=== PATIENT | female | born 1975 | race Caucasian/White ===

== ENCOUNTER → 2022-07-28 11:29 | Outpatient (BNVA) | payer MEDICARE, MEDICAID, SELFPAY | PROVIDERS: Family Provider Nurse Practitioner Family; PCP Family Medicine; Visit Provider Nurse Practitioner Family | DX: R68.89 Other general symptoms and signs (principal); A08.4 Viral intestinal infection, unspecified; I10 Essential (primary) hypertension; F17.200 Nicotine dependence, unspecified, uncomplicated; J32.9 Chronic sinusitis, unspecified; B97.89 Other viral agents as the cause of diseases classified elsewhere | CPT/HCPCS: 87400; 87426 ==

== ENCOUNTER → 2022-08-27 13:30 | Outpatient (BNVA) | payer MEDICARE, MEDICAID, SELFPAY | PROVIDERS: Family Provider Nurse Practitioner Family; PCP Family Medicine; Visit Provider Nurse Practitioner Family | DX: M25.512 Pain in left shoulder (principal) | CPT/HCPCS: 73030 ==

== ENCOUNTER → 2023-08-09 13:45 | Outpatient (BNVA) | payer MEDICARE, MEDICAID, SELFPAY | PROVIDERS: Family Provider Nurse Practitioner Family; PCP Family Medicine; Visit Provider Nurse Practitioner | DX: R50.9 Fever, unspecified (principal); J06.9 Acute upper respiratory infection, unspecified | CPT/HCPCS: 87400; 87426 ==

== ENCOUNTER 2023-09-19 11:33 | Emergency (ER) | payer MEDICARE, MEDICAID, SELFPAY ==
[2023-09-19 12:16] VITALS: BP 171/114; PULSE 95; RESP 18; TEMP 36.7; O2SAT 99; BMI 37.9
--- NOTE | 2023-09-19 13:11 | PC.NURSE ---
registration spoke with dr de leon in [facility]'s nurse and they sent pt here d/t swelling of optic nerve, sent for CT scan.
--- NOTE | 2023-09-19 13:25 | CTR_ITS ---
PROCEDURE INFORMATION: Exam: CT Head Without Contrast Exam date and time: 09/19/2023 1:43 PM Age: 48 years old Clinical indication: Other: Papilledema, sent by eye Dr TECHNIQUE: Imaging protocol: Computed tomography of the head without contrast. Radiation optimization: All CT scans at this facility use at least one of these dose optimization techniques: automated exposure control; mA and/or kV adjustment per patient size (includes targeted exams where dose is matched to clinical indication); or iterative reconstruction. COMPARISON: No relevant prior studies available. RADIATION DOSE METRICS: Total DLP (mGy-cm): 1022.68 FINDINGS: Brain: No midline shift. Mild parenchymal volume loss. No hemorrhage or extra-axial fluid collection. Cerebral ventricles: No ventriculomegaly. Pituitary gland and sella: Partially empty sella. Paranasal sinuses: Visualized sinuses are unremarkable. No fluid levels. Mastoid air cells: Visualized mastoid air cells are well aerated. Orbital cavities: There is optic nerve sheath enlargement seen bilaterally within the orbital components. Subtle intra-ocular protrusion of left optic nerve head. Bones/joints: Unremarkable. No acute fracture. Soft tissues: Unremarkable. CT/CT head wo con* [id number] IMPRESSION: There is optic nerve sheath enlargement seen bilaterally within the orbital components. Subtle intra-ocular protrusion of left optic nerve head. Partially empty sella. Findings raise question of idiopathic intracranial hypertension and further evaluation is recommended with MRI including T2 coronal fat-saturated orbital images and MRV.
--- NOTE | 2023-09-19 13:27 | W.ED.EYEPROB ---
HPI - Eye Problem General: Chief complaint: Eye Problems Stated complaint: eye trouble, sent from eye dr Time Seen by Provider: 09/19/23 13:23 History of Present Illness: 48-year-old female comes in today for complaints of abnormal eye exam at the [employer] office. Patient was told that she had swelling of the optic nerve and recommend that she be evaluated in the ER. Patient reports no headache or severe distress. Patient is a diabetic with chronic kidney disease and dialysis patient. Patient does report chronic hypertension. Review of Systems General: Reports: 10 or more systems reviewed and unremarkable except in HPI and below PFSH ED PFSH: Medical History History of hemodialysis CKD (chronic kidney disease) Cellulitis of left breast Strain of adductor rambo muscle of left lower extremity Family History Father Cancer Mother Chronic kidney disease (CKD) Social History Smoking and tobacco/nicotine status: current every day tobacco/nicotine user cigarettes Packs smoked per day: 1 Years cigarettes smoked: 20 Quit status (tobacco/nicotine): not considering quitting Alcohol intake: never Substance/Drug Use: never Female Reproductive History: Spontaneous abortions: No Physical Exam Const: COMMON NORMALS: alert HENMT: COMMON NORMALS: normocephalic HEAD & SCALP: normocephalic Eye: GENERAL EYE: appearance normal, both eyes and all related structures Neck/C-Spine: COMMON NORMALS: full ROM Resp: COMMON NORMALS: normal respiratory effort and clear to auscultation bilaterally AUSCULTATION: clear to auscultation bilaterally Cardio: COMMON NORMALS: regular rate and regular rhythm RATE: regular rate RHYTHM: regular rhythm Extremity: COMMON NORMALS: normal to inspection NARRATIVE EXTREMITY EXAM: Dialysis shunt is noted in the left upper arm Neuro: SENSORIUM/ORIENTATION: Yes alert Skin: COMMON NORMALS: turgor normal GENERAL SKIN EXAM: turgor normal Course Vital Signs: Vital signs: Vital Signs Temperature 98.1 F 09/19/23 12:16 Pulse Rate 95 09/19/23 12:16 Respiratory Rate 18 09/19/23 12:16 Blood Pressure 171/114 09/19/23 12:16 Pulse Oximetry 99 09/19/23 12:16 Oxygen Delivery Me thod Room Air 09/19/23 12:16 MDM - Eye Problem Medical Decision Making 48-year-old female was referred from [employer] [facility] for concerns of swelling of the optic nerve. Patient appears nontoxic. Patient reports no headache. Patient reports no illness. Patient was at the eye doctor for a routine exam. Patient reports no change in eyesight. Vital signs are normal except for elevated blood pressure at 171/114. Patient reports that she always has high blood pressure. Patient is on dialysis. Differential diagnosis includes not limited to chronic hypertension, increased ICP, hydrocephalus, cerebral edema. CBC was unremarkable. CMP noted creatinine 6.5, potassium 4.4, sodium 128, and a BNP of 28,000. This is most likely due to patient's chronic kidney disease and dialysis. CT noted the optic nerve sheath swelling and suggestive increase ICP most likely idiopathic. There was an MRI suggested for patient to have done. I reviewed this with patient and offered to set up for MRI today but it would be 530 patient did not want to do this today and wanted to see her primary care and have it scheduled at a later date. Patient was stable and nontoxic. Patient had no complaints. Patient was discharged home with instructions for follow-up. I reviewed this with Dr. Powers who agreed with plan. Lab Data 09/19/23 13:32 09/19/23 13:[address] 09/19/23 13:25 IMPRESSION: There is optic nerve sheath enlargement seen bilaterally within the orbital components. Subtle intra-ocular protrusion of left optic nerve head. Partially empty sella. Findings raise question of idiopathic intracranial hypertension and further evaluation is recommended with MRI including T2 coronal fat-saturated orbital images and MRV. Laboratory Results WBC 8.67 10^3/uL (3.29-11.43) 09/19/23 13:32 RBC 4.03 10^6/uL (3.85-5.65) 09/19/23 13:32 Hgb 12.00 g/dL (11.27-16.99) 09/19/23 13:32 Hct 35.4 % (36-47) L 09/19/23 13:32 MCV 87.8 fl (85-98) 09/19/23 13:32 MCH 29.8 pg (27-33) 09/19/23 13:32 MCHC 33.9 g/dL (30-55) 09/19/23 13:32 RDW 12.7 % (12.1-15.1) 09/19/23 13:32 Plt Count 225 10^3/cmm (157-399) 09/19/23 13:32 MPV 9.8 fL (7.4-10.4) 09/19/23 13:32 Neut % (Auto) 54.6 % 09/19/23 13:32 Lymph % (Auto) 29.5 % 09/19/23 13:32 [place] % (Auto) 13.3 % 09/19/23 13:32 Eos % (Auto) 1.4 % 09/19/23 13:32 Baso % (Auto) 0.9 % 09/19/23 13:32 Neut # (Auto) 4.73 10^3/uL (1.8-7.7) 09/19/23 13:32 Lymph # (Auto) 2.6 10^3/uL (0.8-4.8) 09/19/23 13:32 [place] # (Auto) 1.2 10^3/uL (0.2-0.9) H 09/19/23 13:32 Eos # (Auto) 0.1 10^3/uL (0.0-0.8) 09/19/23 13:32 Baso # (Auto) 0.1 10^3/uL (0.0-0.1) 09/19/23 13:32 Nucleated RBC % (auto) 0 % 09/19/23 13:32 Nucleated RBCs # 0.0 /100WBC 09/19/23 13:32 Sodium 128 mmol/L (136-145) L 09/19/23 13:32 Potassium 4.4 mmol/L (3.5-5.1) 09/19/23 13:32 Chloride 84 mmol/L (98-107) L 09/19/23 13:32 Carbon Dioxide 30 mmol/L (22-29) H 09/19/23 13:32 Anion Gap 18.4 (5-19) 09/19/23 13:32 BUN 42 mg/dL (6-20) H 09/19/23 13:32 Creatinine 6.5 mg/dL (0.5-0.9) H* 09/19/23 13:32 GFR Calculation 6.9 mL/min (90-130) L 09/19/23 13:32 Glucose 103 mg/dL (65-115) 09/19/23 13:32 Calculated Osmolality 277 mOsm/kg (285-295) L 09/19/23 13:32 Calcium 8.8 mg/dL (8.5-10.5) 09/19/23 13:32 Total Bilirubin 0.3 mg/dL (0.15-1.2) 09/19/23 13:32 AST 8 U/L (0-32) 09/19/23 13:32 ALT 9 U/L (0-33) 09/19/23 13:32 Alkaline Phosphatase 65 U/L (35-105) 09/19/23 13:32 NT-Pro-B Natriuret Pep 96879 pg/mL (0-125) H 09/19/23 13:32 Total Protein 7.6 g/dL (6.6-8.7) 09/19/23 13:32 Albumin 4.0 g/dL (3.5-5.2) 09/19/23 13:32 Globulin 3.6 g/dL (1.3-4.6) 09/19/23 13:32 All radiology interpretation(s) finalized by discharge Discharge Plan Discharge Patient Disposition: Home Clinical Impression: Papilledema Condition: Stable Prescriptions: No Action hydralazine-hydrochlorothiazid 25-25 mg capsule PO prednisone 20 mg tablet 20 mg PO DAILY 5 Days Qty: 5 0RF carvedilol 12.5 mg tablet 12.5 mg PO BID Rx Instructions: must administer with a meal/food trazodone 50 mg tablet 50 mg PO DAILY lorazepam 1 mg tablet 1 mg PO DAILY PRN Ozempic 0.25 mg or 0.5 mg(2 mg/1.5 mL) pen injector SUBCUT Discharge Orders: Discharge ED (Routine); Ordered 09/19/23 Ordered By: Dionicio Ludwig Referrals: Edward Phoenix DO [Primary Care Provider] - Discharge Diet: Usual diet Discharge Activity: Increase activity as tolerated Patient Instructions: Idiopathic Intracranial Hypertension (ED) Activity Restrictions/Additional Instructions: Your CT exam showed findings that suggest idiopathic intracranial hypertension. It is recommended that you follow-up with primary care for MRI evaluation. You will need to have this set up as outpatient for further evaluation. Return to ER for worsening symptoms such as severe headache, changes in vision, or new concerns. Coding Level of Care Code ED [employer] for [employer]
--- NOTE | 2023-09-19 13:34 | ECG_ITS ---
[facility] Test Date: 2023-09-19 Pat Name: Najma Villa Department: Room: Gender: Female [employer]: : 1975 Requested By: Dionicio Thrasher Order Number: [id number] Sierra MD: Suhas Lu M.D. Measurements Intervals [place] Rate: 88 P: 47 CT: 161 QRS: -8 QRSD: 85 T: 52 QT: 366 QTc: 445 Interpretive Statements SINUS RHYTHM MODERATE VOLTAGE CRITERIA FOR LVH, CONSIDER NORMAL VARIANT [MEETS CRITERIA IN ONE OF: R(aVL), S(V1), R(V5), R(V5/V6)+S(V1)] No previous ECG available for comparison Electronically Signed On 09-19-2023 22:10:53 CDT by Suhas Lu M.D. [email or web address]
[2023-09-19 13:58] LABS: Basophils # 0.1 10^3/uL (0.0-0.1); Basophils % 0.9 %; Eosinophils # 0.1 10^3/uL (0.0-0.8); Eosinophils % 1.4 %; Hematocrit 35.4 % (36-47); Lymphocytes # 2.6 10^3/uL (0.8-4.8); Lymphocytes % 29.5 %; Mean Corpuscular HGB Conc 33.9 g/dL (30-55); Mean Corpuscular Hemoglobin 29.8 pg (27-33); Mean Corpuscular Volume 87.8 fl (85-98); Mean Platelet Volume 9.8 fL (7.4-10.4); Monocytes # 1.2 10^3/uL (0.2-0.9); Monocytes % 13.3 %; Neutrophils # 4.73 10^3/uL (1.8-7.7); Neutrophils % 54.6 %; Nucleated Red Blood Cells % 0 %; Platelet Count 225 10^3/cmm (157-399); Red Blood Count 4.03 10^6/uL (3.85-5.65); Red Cell Distribution Width 12.7 % (12.1-15.1); White Blood Count 8.67 10^3/uL (3.29-11.43)
[2023-09-19 14:06] LABS: Alanine Aminotransferase 9 U/L (0-33); Alkaline Phosphatase 65 U/L (35-105); Anion Gap 18.4 (5-19); Aspartate Amino Transferase 8 U/L (0-32); Blood Urea Nitrogen 42 mg/dL (6-20); Calcium 8.8 mg/dL (8.5-10.5); Carbon Dioxide 30 mmol/L (22-29); Chloride 84 mmol/L (98-107); Creatinine Clr Calc Pharmacy 14.7421; Globulin 3.6 g/dL (1.3-4.6); Glomerular Filtration Rate 6.9 mL/min (90-130); Glucose 103 mg/dL (65-115); Osmolality Calculated 277 mOsm/kg (285-295); Potassium 4.4 mmol/L (3.5-5.1); Sodium 128 mmol/L (136-145); Total Bilirubin 0.3 mg/dL (0.15-1.2); Total Protein 7.6 g/dL (6.6-8.7)
[2023-09-19 14:26] LABS: NT Pro B Type Natriuretic Pept 29732 pg/mL (0-125)
== END 2023-09-19 15:06 | disposition home or self-care (01) ==
PROVIDERS: Emergency Provider Nurse Practitioner Family; PCP Family Medicine
DX: H47.10 Unspecified papilledema (principal); E11.22 Type 2 diabetes mellitus with diabetic chronic kidney disease; I12.9 Hypertensive chronic kidney disease with stage 1 through stage 4 chronic kidney disease, or unspecified chronic kidney disease; N18.9 Chronic kidney disease, unspecified; Z99.2 Dependence on renal dialysis; Z79.85 Long-term (current) use of injectable non-insulin antidiabetic drugs
CPT/HCPCS: 36415; 70450; 80053; 83880; 85025; 93005; 99284

== ENCOUNTER → 2025-03-04 14:03 | Outpatient (BNVA) | payer MEDICARE, MEDICAID, SELFPAY | PROVIDERS: PCP Family Medicine; Referring Provider Nurse Practitioner; Visit Provider Nurse Practitioner | DX: W57.XXXA Bitten or stung by nonvenomous insect and other nonvenomous arthropods, initial encounter (principal) | CPT/HCPCS: 86618; 86666; 86757 ==